=== PATIENT | female | born 1990 | race Caucasian/White ===

== ENCOUNTER 2017-11-15 16:43 | Emergency (ER) | payer BC ==
[~2017-11-15] VITALS: Ht 165.1 cm; Wt 56.7 kg
[~2017-11-15 16:43] MED LIST: ALBU90OI61 INH; CEPH500 PO; CODGUAEL PO; HYDACE5 PO; PRENATAL VITAM1 EAC3 PO; Prilosec Otc20 MG PO; Zithromax250 MG PO
[2017-11-15] MEDS ORDERED: IBUP600 PO (17:32)
[2017-11-15] MEDS ORDERED: CEPH500 PO (17:32)
== END 2017-11-15 17:39 | disposition home or self-care (01) ==
LOC: ER 16:43
DX: N61.0 Mastitis without abscess (principal); Z79.2 Long term (current) use of antibiotics; F17.210 Nicotine dependence, cigarettes, uncomplicated
CPT/HCPCS: 99283

== ENCOUNTER → 2018-05-15 | Outpatient (CLI) | payer BC ==
[~2018-05-15] MED LIST changes: +IBUP600 PO
== END | disposition home or self-care (01) ==
LOC: LAB 14:11 → LAB SHORT 14:11
PROVIDERS: Obstetrics & Gynecology
DX: Z01.419 Encounter for gynecological examination (general) (routine) without abnormal findings (principal)
CPT/HCPCS: G0123

== ENCOUNTER 2020-08-06 18:39 | Emergency (ER) | payer BC, OTHER ==
[~2020-08-06] VITALS: Ht 167.6 cm; Wt 54.4 kg
[2020-08-06] MEDS ORDERED: Amoxicillin500 MG PO (18:50)
[2020-08-06] MEDS ORDERED: TRAM50 PO (18:50)
[2020-08-06] MEDS ORDERED: KETO10 PO (18:50)
== END 2020-08-06 19:02 | disposition home or self-care (01) ==
LOC: ER 18:39
DX: K04.7 Periapical abscess without sinus (principal); F17.210 Nicotine dependence, cigarettes, uncomplicated
CPT/HCPCS: 99282